=== PATIENT | female | born 1955 | race Caucasian/White ===

== ENCOUNTER 2023-11-05 15:15 | Inpatient (IN) | payer MEDICARE ==
[~2023-11-05] VITALS: Ht 167.6 cm; Wt 75.0 kg
--- OUTSIDE RECORDS SUMMARY | ~2023-11-05 | XMS | Continuity of Care Document ---
Demographics + + + | Address | [address] | | | [place] [address] | + + + | Preferred Language | Unknown | + + + | Marital Status | unknown | + + + | Anabaptist Affiliation | Unknown | + + + | Race | White | + + + | Ethnic Group | Not or | + + + Author + + + | Author | [facility] | + + + | Organization | [facility] | + + + | Address | [address] | | | [place] [address] | + + + | Phone | | + + + Care Team Providers + + + + | Care Utility Forester Name | Role | Phone | + + + + Unavailable | Unavailable | + + + + Unavailable | Unavailable | + + + + Unavailable | Unavailable | + + + + Unavailable | Unavailable | + + + + Allergies and Intolerances + + + + + + | date | description | facility | reaction | severity | + + + + + + | 2023-08-07 | CODEINE | Emergency | Unknown | Active | | 00:00 | | Department at | | | | | | [facility] | | | + + + + + + | 2023-08-07 | CODEINE | Emergency | Unknown | Active | | 00:00 | | Department at | | | | | | [facility] | | | + + + + + + | 2023-08-07 | CODEINE | Emergency | Unknown | Active | | 00:00 | | Department at | | | | | | [facility] | | | + + + + + + | 2023-08-07 | CODEINE | Emergency | Unknown | Active | | 00:00 | | Department at | | | | | | [facility] | | | + + + + + + | 2023-08-07 | CODEINE | Emergency | Unknown | Active | | 00:00 | | Department at | | | | | | [facility] | | | + + + + + + | 2023-08-07 | CODEINE | Emergency | Unknown | Active | | 00:00 | | Department at | | | | | | [facility] | | | + + + + + + | 2023-08-07 | CODEINE | Emergency | Unknown | Active | | 00:00 | | Department at | | | | | | [facility] | | | + + + + + + | 2023-08-07 | CODEINE | Emergency | Unknown | Active | | 00:00 | | Department at | | | | | | [facility] | | | + + + + + + | 2023-08-07 | CODEINE | Emergency | Unknown | Active | | 00:00 | | Department at | | | | | | [facility] | | | + + + + + + | 2023-08-07 | CODEINE | Emergency | Unknown | Active | | 00:00 | | Department at | | | | | | [facility] | | | + + + + + + Encounters No information. Functional Status No information. Immunizations No information. Medications + + + + | date | description | facility | + + + + | 2023-08-07 00:00 | 1000 ml sodium chloride 9 | Emergency Department at | | | mg/ml injection | [facility] | + + + + | 2023-08-11 00:00 | Drug or medicament | Emergency Department at | | | (substance) | [facility] | + + + + Problems + + + + | date | description | facility | + + + + | 2023-08-07 11:31 | Unspecified abdominal pain | [facility] | | | | [facility] | + + + + | 2023-08-07 11:31 | Diarrhea, unspecified | [facility] | | | | [facility] | + + + + | 2023-08-11 08:46 | Abdominal Pain | [facility] - | | | | [place] | + + + + | 2023-08-11 08:46 | Abdominal Pain | [facility] - | | | | [place] | + + + + | 2023-08-11 08:46 | Diarrhea, unspecified | [facility] - | | | | [place] | + + + + | 2023-08-17 05:48:51 | Abdominal Pain | [facility] - | | | | [place] | + + + + | 2023-08-17 05:57 | Abdominal Pain | [facility] - | | | | [place] | + + + + | 2023-08-17 05:57 | Abdominal Pain | [facility] - | | | | [place] | + + + + | 2023-08-17 05:57 | Candidiasis, unspecified | [facility] - | | | | [place] | + + + + | 2023-08-17 05:57 | Dehydration | [facility] - | | | | [place] | + + + + | 2023-08-17 05:57 | Acute cystitis without | [facility] - | | | hematuria | [place] | + + + + | 2023-08-17 05:57 | Unspecified abdominal pain | [facility] - | | | | [place] | + + + + | 2023-08-17 05:57 | Diarrhea, unspecified | [facility] - | | | | [place] | + + + + | 2023-10-23 10:35:17 | Hypokalemia | [facility] | + + + + | 2023-10-23 10:35:17 | Diarrhea, unspecified | [facility] | + + + + Procedures + + + + | date | description | facility | + + + + | 2023-08-07 00:00 | MATTHEW ROWE CORE PANEL | Emergency Department at | | | | [facility] | + + + + | 2023-08-07 00:00 | MATTHEW HOLD TUBE - GREEN | Emergency Department at | | | TOP | [facility] | + + + + | 2023-08-07 00:00 | CBC W/DIFF, REFLEX | Emergency Department at | | | | [facility] | + + + + | 2023-08-07 00:00 | MC POC GLUCOSE, BLOOD | Emergency Department at | | | | [facility] | + + + + Results/Labs +--------+--------+ +---------+--------+---------+ | test | date | facility | value | unit | notes | +--------+--------+ +---------+--------+---------+ + + | Result panel 1 | + + + + + + + + + | Specimen | (no date) | Emergency | (missing) | (missing) | (missing) | | collection | | Department | | | | | (procedure) | | at [facility] | | | | + + + + + + + + + | Result panel 2 | + + + + + + + + + | Specimen | (no date) | Emergency | (missing) | (missing) | (missing) | | collection | | Department | | | | | (procedure) | | at [facility] | | | | + + + + + + + + + | Result panel 3 | + + + + + + + + + | Specimen | (no date) | Emergency | (missing) | (missing) | (missing) | | collection | | Department | | | | | (procedure) | | at [facility] | | | | + + + + + + + + + | Result panel 4 | + + + + + +--------+ + + | nRBC/100 | 2023-08-07 | [facility] | 0.0 | % | (missing) | | WBC Bld | 11:45 | Health | | | | | Auto-Rto | | System - | | | | | | | [place] | | | | + + + +--------+ + + | nRBC # Bld | 2023-08-07 | [facility] | 0.00 | k/cu mm | (missing) | | Auto | 11:45 | Health | | | | | | | System - | | | | | | | [place] | | | | + + + +--------+ + + | Imm | 2023-08-07 | [facility] | 0.02 | k/cu mm | (missing) | | Granulocytes | 11:45 | Health | | | | | # Bld Auto | | System - | | | | | | | [place] | | | | + + + +--------+ + + | Basophils # | 2023-08-07 | [facility] | 0.02 | k/cu mm | (missing) | | Bld Auto | 11:45 | Health | | | | | | | System - | | | | | | | [place] | | | | + + + +--------+ + + | Eosinophil | 2023-08-07 | [facility] | 0.18 | k/cu mm | (missing) | | # Bld Auto | 11:45 | Health | | | | | | | System - | | | | | | | [place] | | | | + + + +--------+ + + | | 2023-08-07 | [facility] | 0.3 | % | (missing) | | Basophils/le | 11:45 | Health | | | | | uk NFr Bld | | System - | | | | | Auto | | [place] | | | | + + + +--------+ + + | Imm | 2023-08-07 | [facility] | 0.3 | % | (missing) | | Granulocytes | 11:45 | Health | | | | | /leuk NFr | | System - | | | | | Bld Auto | | [place] | | | | + + + +--------+ + + | Monocytes # | 2023-08-07 | [facility] | 0.66 | k/cu mm | (missing) | | Bld Auto | 11:45 | Health | | | | | | | System - | | | | | | | [place] | | | | + + + +--------+ + + | Lymphocytes | 2023-08-07 | [facility] | 1.58 | k/cu mm | (missing) | | # Bld Auto | 11:45 | Health | | | | | | | System - | | | | | | | [place] | | | | + + + +--------+ + + | PMV Bld | 2023-08-07 | [facility] | 11.1 | fl | (missing) | | Auto | 11:45 | Health | | | | | | | System - | | | | | | | [place] | | | | + + + +--------+ + + | RDW RBC | 2023-08-07 | [facility] | 13.5 | % | (missing) | | Auto-Rto | 11:45 | Health | | | | | | | System - | | | | | | | [place] | | | | + + + +--------+ + + | Hgb | 2023-08-07 | [facility] | 13.9 | g/dl | (missing) | | Bld-mCnc | 11:45 | Health | | | | | | | System - | | | | | | | [place] | | | | + + + +--------+ + + | Platelet # | 2023-08-07 | [facility] | 199 | k/cu mm | (missing) | | Bld Auto | 11:45 | Health | | | | | | | System - | | | | | | | [place] | | | | + + + +--------+ + + | | 2023-08-07 | [facility] | 2.5 | % | (missing) | | Eosinophil/l | 11:45 | Health | | | | | euk NFr Bld | | System - | | | | | Auto | | [place] | | | | + + + +--------+ + + | | 2023-08-07 | [facility] | 21.5 | % | (missing) | | Lymphocytes/ | 11:45 | Health | | | | | leuk NFr Bld | | System - | | | | | Auto | | [place] | | | | + + + +--------+ + + | MCH RBC Qn | 2023-08-07 | [facility] | 30.0 | pg | (missing) | | Auto | 11:45 | Health | | | | | | | System - | | | | | | | [place] | | | | + + + +--------+ + + | MCHC RBC | 2023-08-07 | [facility] | 34.0 | g/dl | (missing) | | Auto-mCnc | 11:45 | Health | | | | | | | System - | | | | | | | [place] | | | | + + + +--------+ + + | RBC # Bld | 2023-08-07 | [facility] | 4.64 | m/cu mm | (missing) | | Auto | 11:45 | Health | | | | | | | System - | | | | | | | [place] | | | | + + + +--------+ + + | Neutrophils | 2023-08-07 | [facility] | 4.88 | k/cu mm | (missing) | | # Bld Auto | 11:45 | Health | | | | | | | System - | | | | | | | [place] | | | | + + + +--------+ + + | Hct VFr Bld | 2023-08-07 | [facility] | 40.9 | % | (missing) | | Auto | 11:45 | Health | | | | | | | System - | | | | | | | [place] | | | | + + + +--------+ + + | | 2023-08-07 | [facility] | 66.4 | % | (missing) | | Neutrophils/ | 11:45 | Health | | | | | leuk NFr Bld | | System - | | | | | Auto | | [place] | | | | + + + +--------+ + + | WBC # Bld | 2023-08-07 | [facility] | 7.34 | k/cu mm | (missing) | | Auto | 11:45 | Health | | | | | | | System - | | | | | | | [place] | | | | + + + +--------+ + + | MCV RBC | 2023-08-07 | [facility] | 88.1 | fl | (missing) | | Auto | 11:45 | Health | | | | | | | System - | | | | | | | [place] | | | | + + + +--------+ + + | | 2023-08-07 | [facility] | 9.0 | % | (missing) | | Monocytes/le | 11:45 | Health | | | | | uk NFr Bld | | System - | | | | | Auto | | [place] | | | | + + + +--------+ + + + + | Result panel 5 | + + + + + +-------+---------+ + | | 2023-08-07 | Emergency | 158 | mg/dL | (missing) | | (unavailable | 18:47:24 | Department | | | | | ) | | at [facility] | | | | + + + +-------+---------+ + + + | Result panel 6 | + + + + + +--------+------+ + | | 2023-08-07 | Emergency | 30.0 | pg | (missing) | | (unavailable | 20:46:01 | Department | | | | | ) | | at [facility] | | | | + + + +--------+------+ + + + | Result panel 7 | + + + + + +--------+--------+ + | | 2023-08-07 | Emergency | 34.0 | g/dL | (missing) | | (unavailable | 20:46:01 | Department | | | | | ) | | at [facility] | | | | + + + +--------+--------+ + + + | Result panel 8 | + + + + + +--------+-----+ + | | 2023-08-07 | Emergency | 13.5 | % | (missing) | | (unavailable | 20:46:01 | Department | | | | | ) | | at [facility] | | | | + + + +--------+-----+ + + + | Result panel 9 | + + + + + +-------+ + + | | 2023-08-07 | Emergency | 199 | (missing) | (missing) | | (unavailable | 20:46:01 | Department | | | | | ) | | at [facility] | | | | + + + +-------+ + + + + | Result panel 10 | + + + + + +--------+------+ + | | 2023-08-07 | Emergency | 11.1 | fL | (missing) | | (unavailable | 20:46:01 | Department | | | | | ) | | at [facility] | | | | + + + +--------+------+ + + + | Result panel 11 | + + + + + +-------+-----+ + | | 2023-08-07 | Emergency | 0.0 | % | (missing) | | (unavailable | 20:46:01 | Department | | | | | ) | | at [facility] | | | | + + + +-------+-----+ + + + | Result panel 12 | + + + + + +--------+ + + | | 2023-08-07 | Emergency | 0.00 | (missing) | (missing) | | (unavailable | 20:46:01 | Department | | | | | ) | | at [facility] | | | | + + + +--------+ + + + + | Result panel 13 | + + + + + +--------+-----+ + | | 2023-08-07 | Emergency | 66.4 | % | (missing) | | (unavailable | 20:46:01 | Department | | | | | ) | | at [facility] | | | | + + + +--------+-----+ + + + | Result panel 14 | + + + + + +--------+-----+ + | | 2023-08-07 | Emergency | 21.5 | % | (missing) | | (unavailable | 20:46:01 | Department | | | | | ) | | at [facility] | | | | + + + +--------+-----+ + + + | Result panel 15 | + + + + + +-------+-----+ + | | 2023-08-07 | Emergency | 9.0 | % | (missing) | | (unavailable | 20:46:01 | Department | | | | | ) | | at [facility] | | | | + + + +-------+-----+ + + + | Result panel 16 | + + + + + +-------+-----+ + | | 2023-08-07 | Emergency | 2.5 | % | (missing) | | (unavailable | 20:46:01 | Department | | | | | ) | | at [facility] | | | | + + + +-------+-----+ + + + | Result panel 17 | + + + + + +-------+-----+ + | | 2023-08-07 | Emergency | 0.3 | % | (missing) | | (unavailable | 20:46:01 | Department | | | | | ) | | at [facility] | | | | + + + +-------+-----+ + + + | Result panel 18 | + + + + + +-------+-----+ + | | 2023-08-07 | Emergency | 0.3 | % | (missing) | | (unavailable | 20:46:01 | Department | | | | | ) | | at [facility] | | | | + + + +-------+-----+ + + + | Result panel 19 | + + + + + +--------+ + + | | 2023-08-07 | Emergency | 4.88 | (missing) | (missing) | | (unavailable | 20:46:01 | Department | | | | | ) | | at [facility] | | | | + + + +--------+ + + + + | Result panel 20 | + + + + + +--------+ + + | | 2023-08-07 | Emergency | 1.58 | (missing) | (missing) | | (unavailable | 20:46:01 | Department | | | | | ) | | at [facility] | | | | + + + +--------+ + + + + | Result panel 21 | + + + + + +--------+ + + | | 2023-08-07 | Emergency | 0.66 | (missing) | (missing) | | (unavailable | 20:46:01 | Department | | | | | ) | | at [facility] | | | | + + + +--------+ + + + + | Result panel 22 | + + + + + +--------+ + + | | 2023-08-07 | Emergency | 0.18 | (missing) | (missing) | | (unavailable | 20:46:01 | Department | | | | | ) | | at [facility] | | | | + + + +--------+ + + + + | Result panel 23 | + + + + + +--------+ + + | | 2023-08-07 | Emergency | 0.02 | (missing) | (missing) | | (unavailable | 20:46:01 | Department | | | | | ) | | at [facility] | | | | + + + +--------+ + + + + | Result panel 24 | + + + + + +--------+ + + | | 2023-08-07 | Emergency | 0.02 | (missing) | (missing) | | (unavailable | 20:46:01 | Department | | | | | ) | | [facility] | | | | + + + +--------+ + + + + | Result panel 25 | + + + + + + + + + | | 2023-08-07 | Emergency | Normal | (missing) | (missing) | | (unavailable | 20:46:01 | Department | | | | | ) | | at [facility] | | | | + + + + + + + + + | Result panel 26 | + + + + + +--------+ + + | | 2023-08-07 | Emergency | 7.34 | (missing) | (missing) | | (unavailable | 20:46:01 | Department | | | | | ) | | at [facility] | | | | + + + +--------+ + + + + | Result panel 27 | + + + + + +--------+ + + | | 2023-08-07 | Emergency | 4.64 | (missing) | (missing) | | (unavailable | 20:46:01 | Department | | | | | ) | | at [facility] | | | | + + + +--------+ + + + + | Result panel 28 | + + + + + +--------+--------+ + | | 2023-08-07 | Emergency | 13.9 | g/dL | (missing) | | (unavailable | 20:46:01 | Department | | | | | ) | | at [facility] | | | | + + + +--------+--------+ + + + | Result panel 29 | + + + + + +--------+-----+ + | | 2023-08-07 | Emergency | 40.9 | % | (missing) | | (unavailable | 20:46:01 | Department | | | | | ) | | at [facility] | | | | + + + +--------+-----+ + + + | Result panel 30 | + + + + + +--------+------+ + | | 2023-08-07 | Emergency | 88.1 | fL | (missing) | | (unavailable | 20:46:01 | Department | | | | | ) | | at [facility] | | | | + + + +--------+------+ + + + | Result panel 31 | + + + + + + + + + | | 2023-08-11 | [facility] | (missing) | (missing) | (missing) | | ACANTHOCYTES | 09:04 | Health | | | | | PRESENCE IN | | System - | | | | | BLOOD BY | | [place] | | | | | LIGHT | | | | | | | MICROSCOPY | | | | | | + + + + + + + | | 2023-08-11 | [facility] | (missing) | (missing) | (missing) | | ANISOCYTOSIS | 09:04 | Health | | | | | PRESENCE IN | | System - | | | | | BLOOD BY | | [place] | | | | | LIGHT | | | | | | | MICROSCOPY | | | | | | + + + + + + + | PRICILLA RODS | 2023-08-11 | [facility] | (missing) | (missing) | (missing) | | PRESENCE IN | 09:04 | Health | | | | | BLOOD BY | | System - | | | | | LIGHT | | [place] | | | | | MICROSCOPY | | | | | | + + + + + + + | BASOPHILIC | 2023-08-11 | [facility] | (missing) | (missing) | (missing) | | STIPPLING | 09:04 | Health | | | | | PRESENCE IN | | System - | | | | | BLOOD BY | | [place] | | | | | LIGHT | | | | | | | MICROSCOPY | | | | | | + + + + + + + | BEATA CELLS | 2023-08-11 | [facility] | (missing) | (missing) | (missing) | | PRESENCE IN | 09:04 | Health | | | | | BLOOD BY | | System - | | | | | LIGHT | | [place] | | | | | MICROSCOPY | | | | | | + + + + + + + | DACROCYTES | 2023-08-11 | [facility] | (missing) | (missing) | (missing) | | PRESENCE IN | 09:04 | Health | | | | | BLOOD BY | | System - | | | | | LIGHT | | [place] | | | | | MICROSCOPY | | | | | | + + + + + + + | DOHLE BODY | 2023-08-11 | [facility] | (missing) | (missing) | (missing) | | PRESENCE IN | 09:04 | Health | | | | | BLOOD BY | | System - | | | | | LIGHT | | [place] | | | | | MICROSCOPY | | | | | | + + + + + + + | | 2023-08-11 | [facility] | (missing) | (missing) | (missing) | | ELLIPTOCYTES | 09:04 | Health | | | | | IN BLOOD BY | | System - | | | | | LIGHT | | [place] | | | | | MICROSCOPY | | | | | | + + + + + + + | HELMET | 2023-08-11 | [facility] | (missing) | (missing) | (missing) | | CELLS | 09:04 | Health | | | | | | | System - | | | | | | | [place] | | | | + + + + + + + | | 2023-08-11 | [facility] | (missing) | (missing) | (missing) | | LIDYA-BAILEE | 09:04 | Health | | | | | BODIES | | System - | | | | | PRESENCE IN | | [place] | | | | | BLOOD BY | | | | | | | LIGHT | | | | | | | MICROSCOPY | | | | | | + + + + + + + | | 2023-08-11 | [facility] | (missing) | (missing) | (missing) | | HYPERSEGMENT | 09:04 | Health | | | | | ED | | System - | | | | | NEUTROPHILS | | [place] | | | | | IN BLOOD BY | | | | | | | LIGHT | | | | | | | MICROSCOPY | | | | | | + + + + + + + | HYPOCHROMIA | 2023-08-11 | [facility] | (missing) | (missing) | (missing) | | (PRESENCE) | 09:04 | Health | | | | | IN BLOOD BY | | System - | | | | | LIGHT | | [place] | | | | | MICROSCOPY | | | | | | + + + + + + + | | 2023-08-11 | [facility] | (missing) | (missing) | (missing) | | HYPOGRANULAR | 09:04 | Health | | | | | PLATELETS | | System - | | | | | IN BLOOD BY | | [place] | | | | | LIGHT | | | | | | | MICROSCOPY | | | | | | + + + + + + + | LEUKOCYTE | 2023-08-11 | [facility] | (missing) | (missing) | (missing) | | MORPHOLOGY | 09:04 | Health | | | | | FINDING IN | | System - | | | | | BLOOD | | [place] | | | | + + + + + + + | MACROCYTES | 2023-08-11 | [facility] | (missing) | (missing) | (missing) | | (PRESENCE) | 09:04 | Health | | | | | IN BLOOD BY | | System - | | | | | LIGHT | | [place] | | | | | MICROSCOPY | | | | | | + + + + + + + | MICROCYTES | 2023-08-11 | [facility] | (missing) | (missing) | (missing) | | (PRESENCE) | 09:04 | Health | | | | | IN BLOOD BY | | System - | | | | | LIGHT | | [place] | | | | | MICROSCOPY | | | | | | + + + + + + + | | 2023-08-11 | [facility] | (missing) | (missing) | (missing) | | PAPPENHEIMER | 09:04 | Health | | | | | BODIES IN | | System - | | | | | BLOOD BY | | [place] | | | | | LIGHT | | | | | | | MICROSCOPY | | | | | | + + + + + + + | PELGER HUET | 2023-08-11 | [facility] | (missing) | (missing) | (missing) | | CELLS | 09:04 | Health | | | | | PRESENCE IN | | System - | | | | | BLOOD BY | | [place] | | | | | LIGHT | | | | | | | MICROSCOPY | | | | | | + + + + + + + | | 2023-08-11 | [facility] | (missing) | (missing) | (missing) | | PLASMACYTOID | 09:04 | Health | | | | | LYMPHOCYTES | | System - | | | | | | | [place] | | | | + + + + + + + | PLATELET | 2023-08-11 | [facility] | (missing) | (missing) | (missing) | | CLUMP | 09:04 | Health | | | | | (PRESENCE) | | System - | | | | | IN BLOOD BY | | [place] | | | | | LIGHT | | | | | | | MICROSCOPY | | | | | | + + + + + + + | PLATELET | 2023-08-11 | [facility] | (missing) | (missing) | (missing) | | ESTIMATE | 09:04 | Health | | | | | | | System - | | | | | | | [place] | | | | + + + + + + + | PLATELET | 2023-08-11 | [facility] | (missing) | (missing) | (missing) | | MORPHOLOGY | 09:04 | Health | | | | | IN BLOOD | | System - | | | | | | | [place] | | | | + + + + + + + | PLATELETS | 2023-08-11 | [facility] | (missing) | (missing) | (missing) | | GIANT | 09:04 | Health | | | | | PRESENCE IN | | System - | | | | | BLOOD BY | | [place] | | | | | LIGHT | | | | | | | MICROSCOPY | | | | | | + + + + + + + | | 2023-08-11 | [facility] | (missing) | (missing) | (missing) | | POIKILOCYTOS | 09:04 | Health | | | | | IS | | System - | | | | | (PRESENCE) | | [place] | | | | | IN BLOOD BY | | | | | | | LIGHT | | | | | | | MICROSCOPY | | | | | | + + + + + + + | | 2023-08-11 | [facility] | (missing) | (missing) | (missing) | | POLYCHROMASI | 09:04 | Health | | | | | A IN BLOOD | | System - | | | | | BY LIGHT | | [place] | | | | | MICROSCOPY | | | | | | + + + + + + + | RBC | 2023-08-11 | [facility] | (missing) | (missing) | (missing) | | MORPHOLOGY | 09:04 | Health | | | | | IN BLOOD | | System - | | | | | | | [place] | | | | + + + + + + + | ROULEAUX | 2023-08-11 | [facility] | (missing) | (missing) | (missing) | | PRESENCE IN | 09:04 | Health | | | | | BLOOD BY | | System - | | | | | LIGHT | | [place] | | | | | MICROSCOPY | | | | | | + + + + + + + | | 2023-08-11 | [facility] | (missing) | (missing) | (missing) | | SCHISTOCYTES | 09:04 | Health | | | | | (PRESENCE) | | System - | | | | | IN BLOOD BY | | [place] | | | | | LIGHT | | | | | | | MICROSCOPY | | | | | | + + + + + + + | SICKLE | 2023-08-11 | [facility] | (missing) | (missing) | (missing) | | CELLS | 09:04 | Health | | | | | (PRESENCE) | | System - | | | | | IN BLOOD BY | | [place] | | | | | LIGHT | | | | | | | MICROSCOPY | | | | | | + + + + + + + | SMUDGE | 2023-08-11 | [facility] | (missing) | (missing) | (missing) | | CELLS/100 | 09:04 | Health | | | | | LEUKOCYTES | | System - | | | | | IN BLOOD BY | | [place] | | | | | MANUAL COUNT | | | | | | | | | | | | | + + + + + + + | SPHEROCYTES | 2023-08-11 | [facility] | (missing) | (missing) | (missing) | | PRESENCE IN | 09:04 | Health | | | | | BLOOD BY | | System - | | | | | LIGHT | | [place] | | | | | MICROSCOPY | | | | | | + + + + + + + | | 2023-08-11 | [facility] | (missing) | (missing) | (missing) | | STOMATOCYTES | 09:04 | Health | | | | | IN BLOOD BY | | System - | | | | | LIGHT | | [place] | | | | | MICROSCOPY | | | | | | + + + + + + + | TARGET | 2023-08-11 | [facility] | (missing) | (missing) | (missing) | | CELLS IN | 09:04 | Health | | | | | BLOOD BY | | System - | | | | | LIGHT | | [place] | | | | | MICROSCOPY | | | | | | + + + + + + + | TOXIC | 2023-08-11 | [facility] | (missing) | (missing) | (missing) | | GRANULES | 09:04 | Health | | | | | PRESENCE IN | | System - | | | | | BLOOD BY | | [place] | | | | | LIGHT | | | | | | | MICROSCOPY | | | | | | + + + + + + + | VACUOLATED | 2023-08-11 | [facility] | (missing) | (missing) | (missing) | | NEUTROPHILS | 09:04 | Health | | | | | PRESENCE IN | | System - | | | | | BLOOD BY | | [place] | | | | | LIGHT | | | | | | | MICROSCOPY | | | | | | + + + + + + + | EGFR | 2023-08-11 | [facility] | > | | (missing) | | (GLOMERULAR | 09:04 | Health | | ml/min/1.73m | | | FILTRATION | | System - | | ? | | | RATE) | | [place] | | | | | ML/MIN/1.73 | | | | | | | SQ M. | | | | | | + + + + + + + | NRBC/100 | 2023-08-11 | [facility] | 0.0 | % | (missing) | | WBCS BY | 09:04 | Health | | | | | AUTOMATED | | System - | | | | | COUNT | | [place] | | | | + + + + + + + | BASOPHILS | 2023-08-11 | [facility] | 0.0 | k/mcl | (missing) | | (10*3/UL) IN | 09:04 | Health | | | | | BLOOD BY | | System - | | | | | AUTOMATED | | [place] | | | | | COUNT | | | | | | + + + + + + + | | 2023-08-11 | [facility] | 0.0 | k/mcl | (missing) | | NRBC(10*3/UL | 09:04 | Health | | | | | ) IN BLOOD | | System - | | | | | BY AUTOMATED | | [place] | | | | | COUNT | | | | | | + + + + + + + | IMMATURE | 2023-08-11 | [facility] | 0.03 | k/mcl | (missing) | | GRANULOCYTE | 09:04 | Health | | | | | (ABS) | | System - | | | | | | | [place] | | | | + + + + + + + | EOSINOPHILS | 2023-08-11 | [facility] | 0.2 | k/mcl | (missing) | | (10*3/UL) | 09:04 | Health | | | | | IN BLOOD BY | | System - | | | | | AUTOMATED | | [place] | | | | | COUNT | | | | | | + + + + + + + | IMMATURE | 2023-08-11 | [facility] | 0.4 | % | (missing) | | GRANULOCYTE | 09:04 | Health | | | | | % (AUTO) | | System - | | | | | | | [place] | | | | + + + + + + + | | 2023-08-11 | [facility] | 0.5 | % | (missing) | | BASOPHILS/10 | 09:04 | Health | | | | | 0 LEUKOCYTES | | System - | | | | | IN BLOOD BY | | [place] | | | | | AUTOMATED | | | | | | | COUNT | | | | | | + + + + + + + | MONOCYTES | 2023-08-11 | [facility] | 0.7 | k/mcl | (missing) | | (10*3/UL) IN | 09:04 | Health | | | | | BLOOD BY | | System - | | | | | AUTOMATED | | [place] | | | | | COUNT | | | | | | + + + + + + + | BILIRUBIN | 2023-08-11 | [facility] | 0.7 | mg/dl | (missing) | | TOTAL | 09:04 | Health | | | | | (MG/DL) IN | | System - | | | | | SER/PLAS | | [place] | | | | + + + + + + + | CREATININE | 2023-08-11 | [facility] | 0.7 | mg/dl | (missing) | | (MG/DL) IN | 09:04 | Health | | | | | SER/PLAS | | System - | | | | | | | [place] | | | | + + + + + + + | LYMPHOCYTES | 2023-08-11 | [facility] | 1.4 | k/mcl | (missing) | | (10*3/UL) | 09:04 | Health | | | | | IN BLOOD BY | | System - | | | | | AUTOMATED | | [place] | | | | | COUNT | | | | | | + + + + + + + | CHLORIDE | 2023-08-11 | [facility] | 100 | mmol/l | (missing) | | (MMOL/L) IN | 09:04 | Health | | | | | SER/PLAS | | System - | | | | | | | [place] | | | | + + + + + + + | LIPASE | 2023-08-11 | [facility] | 11 | u/l | (missing) | | (U/L) IN | 09:04 | Health | | | | | SER/PLAS | | System - | | | | | | | [place] | | | | + + + + + + + | PLATELET | 2023-08-11 | [facility] | 11.3 | fl | (missing) | | MEAN VOLUME | 09:04 | Health | | | | | (FL) IN | | System - | | | | | BLOOD BY | | [place] | | | | | AUTOMATED | | | | | | | COUNT | | | | | | + + + + + + + | ERYTHROCYTE | 2023-08-11 | [facility] | 13.7 | % | (missing) | | | 09:04 | Health | | | | | DISTRIBUTION | | System - | | | | | WIDTH | | [place] | | | | | (RATIO) BY | | | | | | | AUTOMATED | | | | | | | COUNT | | | | | | + + + + + + + | SODIUM | 2023-08-11 | [facility] | 138 | mmol/l | (missing) | | (MMOL/L) IN | 09:04 | Health | | | | | SER/PLAS | | System - | | | | | | | [place] | | | | + + + + + + + | HEMOGLOBIN | 2023-08-11 | [facility] | 14.3 | g/dl | (missing) | | (G/DL) IN | 09:04 | Health | | | | | BLOOD | | System - | | | | | | | [place] | | | | + + + + + + + | ALKALINE | 2023-08-11 | [facility] | 141 | u/l | (missing) | | PHOSPHATASE | 09:04 | Health | | | | | (U/L) IN | | System - | | | | | SER/PLAS | | [place] | | | | + + + + + + + | ANION GAP | 2023-08-11 | [facility] | 16.0 | mmol/l | (missing) | | IN SER/PLAS | 09:04 | Health | | | | | | | System - | | | | | | | [place] | | | | + + + + + + + | | 2023-08-11 | [facility] | 17.8 | % | (missing) | | LYMPHOCYTES/ | 09:04 | Health | | | | | 100 | | System - | | | | | LEUKOCYTES | | [place] | | | | | IN BLOOD BY | | | | | | | AUTOMATED | | | | | | | COUNT | | | | | | + + + + + + + | BLOOD UREA | 2023-08-11 | [facility] | 19 | mg/dl | (missing) | | NITROGEN | 09:04 | Health | | | | | (BUN) | | System - | | | | | (MG/DL) IN | | [place] | | | | | SER/PLAS | | | | | | + + + + + + + | ALANINE | 2023-08-11 | [facility] | 19 | u/l | (missing) | | AMINOTRANSFE | 09:04 | Health | | | | | RASE (SGPT) | | System - | | | | | (U/L) IN | | [place] | | | | | SER/PLAS | | | | | | + + + + + + + | | 2023-08-11 | [facility] | 2.0 | % | (missing) | | EOSINOPHILS/ | 09:04 | Health | | | | | 100 | | System - | | | | | LEUKOCYTES | | [place] | | | | | IN BLOOD BY | | | | | | | AUTOMATED | | | | | | | COUNT | | | | | | + + + + + + + | GLUCOSE, | 2023-08-11 | [facility] | 210 | mg/dl | (missing) | | RANDOM | 09:04 | Health | | | | | (MG/DL) IN | | System - | | | | | SER/PLAS | | [place] | | | | + + + + + + + | PLATELETS | 2023-08-11 | [facility] | 218 | k/mcl | (missing) | | (10*3/UL) IN | 09:04 | Health | | | | | BLOOD | | System - | | | | | AUTOMATED | | [place] | | | | | COUNT | | | | | | + + + + + + + | CARBON | 2023-08-11 | [facility] | 22 | mmol/l | (missing) | | DIOXIDE | 09:04 | Health | | | | | (CO2), TOTAL | | System - | | | | | (MMOL/L) IN | | [place] | | | | | SER/PLAS | | | | | | + + + + + + + | ASPARTATE | 2023-08-11 | [facility] | 30 | u/l | (missing) | | AMINOTRANSFE | 09:04 | Health | | | | | RASE (SGOT) | | System - | | | | | (U/L) IN | | [place] | | | | | SER/PLAS | | | | | | + + + + + + + | ERYTHROCYTE | 2023-08-11 | [facility] | 30.3 | pg | (missing) | | MEAN | 09:04 | Health | | | | | CORPUSCULAR | | System - | | | | | HEMOGLOBIN | | [place] | | | | | (PG) BY | | | | | | | AUTOMATED | | | | | | | COUNT | | | | | | + + + + + + + | ERYTHROCYTE | 2023-08-11 | [facility] | 32.6 | g/dl | (missing) | | MEAN | 09:04 | Health | | | | | CORPUSCULAR | | System - | | | | | HEMOGLOBIN | | [place] | | | | | CONCENTRATIO | | | | | | | N (G/DL) BY | | | | | | | AUTOMATED | | | | | | + + + + + + + | POTASSIUM | 2023-08-11 | [facility] | 4.0 | mmol/l | (missing) | | (MMOL/L) IN | 09:04 | Health | | | | | SER/PLAS | | System - | | | | | | | [place] | | | | + + + + + + + | ALBUMIN | 2023-08-11 | [facility] | 4.5 | g/dl | (missing) | | (G/DL) IN | 09:04 | Health | | | | | SER/PLAS | | System - | | | | | | | [place] | | | | + + + + + + + | | 2023-08-11 | [facility] | 4.72 | m/mcl | (missing) | | ERYTHROCYTES | 09:04 | Health | | | | | (10*6/UL) | | System - | | | | | IN BLOOD BY | | [place] | | | | | AUTOMATED | | | | | | | COUNT | | | | | | + + + + + + + | HEMATOCRIT | 2023-08-11 | [facility] | 43.9 | % | (missing) | | (%) IN BLOOD | 09:04 | Health | | | | | BY | | System - | | | | | AUTOMATED | | [place] | | | | | COUNT | | | | | | + + + + + + + | NEUTROPHILS | 2023-08-11 | [facility] | 5.5 | k/mcl | (missing) | | (10*3/UL) | 09:04 | Health | | | | | IN BLOOD BY | | System - | | | | | AUTOMATED | | [place] | | | | | COUNT | | | | | | + + + + + + + | PROTEIN | 2023-08-11 | [facility] | 7.6 | g/dl | (missing) | | (G/DL) IN | 09:04 | Health | | | | | SER/PLAS | | System - | | | | | | | [place] | | | | + + + + + + + | | 2023-08-11 | [facility] | 7.9 | k/mcl | (missing) | | LEUKOCYTES(1 | 09:04 | Health | | | | | 0*3/UL) IN | | System - | | | | | BLOOD BY | | [place] | | | | | AUTOMATED | | | | | | | COUNT | | | | | | + + + + + + + | | 2023-08-11 | [facility] | 70.1 | % | (missing) | | NEUTROPHILS/ | 09:04 | Health | | | | | 100 | | System - | | | | | LEUKOCYTES | | [place] | | | | | IN BLOOD BY | | | | | | | AUTOMATED | | | | | | | COUNT | | | | | | + + + + + + + | | 2023-08-11 | [facility] | 9.2 | % | (missing) | | MONOCYTES/10 | 09:04 | Health | | | | | 0 LEUKOCYTES | | System - | | | | | IN BLOOD BY | | [place] | | | | | AUTOMATED | | | | | | | COUNT | | | | | | + + + + + + + | CALCIUM | 2023-08-11 | [facility] | 9.8 | mg/dl | (missing) | | (MG/DL) IN | 09:04 | Health | | | | | SER/PLAS | | System - | | | | | | | [place] | | | | + + + + + + + | ERYTHROCYTE | 2023-08-11 | [facility] | 93.0 | fl | (missing) | | MEAN | 09:04 | Health | | | | | CORPUSCULAR | | System - | | | | | VOLUME (FL) | | [place] | | | | | BY AUTOMATED | | | | | | | COUNT | | | | | | + + + + + + + | ASTROVIRUS | 2023-08-11 | [facility] | Not | (missing) | (missing) | | | 09:04 | Health | Detected | | | | | | System - | | | | | | | [place] | | | | + + + + + + + | | 2023-08-11 | [facility] | Not | (missing) | (missing) | | CAMPYLOBACTE | 09:04 | Health | Detected | | | | R | | System - | | | | | | | [place] | | | | + + + + + + + | | 2023-08-11 | [facility] | Not | (missing) | (missing) | | CRYPTOSPORID | 09:04 | Health | Detected | | | | IUM | | System - | | | | | | | [place] | | | | + + + + + + + | CYCLOSPORA | 2023-08-11 | [facility] | Not | (missing) | (missing) | | CAYETANENSIS | 09:04 | Health | Detected | | | | | | System - | | | | | | | [place] | | | | + + + + + + + | ENTAMOEBA | 2023-08-11 | [facility] | Not | (missing) | (missing) | | HISTOLYTICA | 09:04 | Health | Detected | | | | | | System - | | | | | | | [place] | | | | + + + + + + + | | 2023-08-11 | [facility] | Not | (missing) | (missing) | | ENTEROAGGREG | 09:04 | Health | Detected | | | | ATIVE E. | | System - | | | | | COLI (EAEC) | | [place] | | | | + + + + + + + | | 2023-08-11 | [facility] | Not | (missing) | (missing) | | ENTEROPATHOG | 09:04 | Health | Detected | | | | ENIC E. COLI | | System - | | | | | (EPEC) | | [place] | | | | + + + + + + + | | 2023-08-11 | [facility] | Not | (missing) | (missing) | | ENTEROTOXIGE | 09:04 | Health | Detected | | | | CINDY E. COLI | | System - | | | | | (ETEC) | | [place] | | | | + + + + + + + | GIARDIA | 2023-08-11 | [facility] | Not | (missing) | (missing) | | LAMBLIA | 09:04 | Health | Detected | | | | | | System - | | | | | | | [place] | | | | + + + + + + + | NOROVIRUS | 2023-08-11 | [facility] | Not | (missing) | (missing) | | GI/GII | 09:04 | Health | Detected | | | | | | System - | | | | | | | [place] | | | | + + + + + + + | PLESIOMONAS | 2023-08-11 | [facility] | Not | (missing) | (missing) | | | 09:04 | Health | Detected | | | | SHIGELLOIDES | | System - | | | | | | | [place] | | | | + + + + + + + | ROTAVIRUS A | 2023-08-11 | [facility] | Not | (missing) | (missing) | | | 09:04 | Health | Detected | | | | | | System - | | | | | | | [place] | | | | + + + + + + + | SALMONELLA | 2023-08-11 | [facility] | Not | (missing) | (missing) | | | 09:04 | Health | Detected | | | | | | System - | | | | | | | [place] | | | | + + + + + + + | SAPOVIRUS | 2023-08-11 | [facility] | Not | (missing) | (missing) | | | 09:04 | Health | Detected | | | | | | System - | | | | | | | [place] | | | | + + + + + + + | SHIGA-LIKE | 2023-08-11 | [facility] | Not | (missing) | (missing) | | TOXIN-PRODUC | 09:04 | Health | Detected | | | | ING E. COLI | | System - | | | | | (STEC) | | [place] | | | | | STX1/STX2 | | | | | | + + + + + + + | | 2023-08-11 | [facility] | Not | (missing) | (missing) | | SHIGELLA/ENT | 09:04 | Health | Detected | | | | EROINVASIVE | | System - | | | | | E. COLI | | [place] | | | | | (EIEC) | | | | | | + + + + + + + | VIBRIO | 2023-08-11 | [facility] | Not | (missing) | (missing) | | CHOLERAE | 09:04 | Health | Detected | | | | | | System - | | | | | | | [place] | | | | + + + + + + + | VIBRIO | 2023-08-11 | [facility] | Not | (missing) | (missing) | | | 09:04 | Health | Detected | | | | | | System - | | | | | | | [place] | | | | + + + + + + + | YERSINIA | 2023-08-11 | [facility] | Not | (missing) | (missing) | | ENTEROCOLITI | 09:04 | Health | Detected | | | | CA | | System - | | | | | | | [place] | | | | + + + + + + + | C DIFFICILE | 2023-08-11 | [facility] | Not | (missing) | Due to the | | TOXINS A + | 09:04 | Health | Detected | | high | | B (PCR) | | System - | | | asymptomatic | | | | [place] | | | carriage | | | | | | | rates, | | | | | | | especially | | | | | | | in young | | | | | | | children, | | | | | | | the clinical | | | | | | | relevance | | | | | | | of the | | | | | | | detection of | | | | | | | toxigenic | | | | | | | C. difficile | | | | | | | from stool | | | | | | | should be | | | | | | | considered | | | | | | | in the | | | | | | | context of | | | | | | | other | | | | | | | clinical | | | | | | | findings, | | | | | | | patient age, | | | | | | | and risk | | | | | | | factors | | | | | | | including | | | | | | | hospitalizat | | | | | | | ion and | | | | | | | antibiotic | | | | | | | exposure. | + + + + + + + | ADENOVIRUS | 2023-08-11 | [facility] | Not | (missing) | Virus, | | F 40/41 | 09:04 | Health | Detected | | bacteria and | | | | System - | | | parasite | | | | [place] | | | nucleic acid | | | | | | | may persist | | | | | | | in vivo | | | | | | | independentl | | | | | | | y of | | | | | | | organism | | | | | | | viability. | | | | | | | Additionally | | | | | | | , some | | | | | | | organisms | | | | | | | may be | | | | | | | carried | | | | | | | asymptomatic | | | | | | | ally. | | | | | | | Detection of | | | | | | | organism | | | | | | | targets does | | | | | | | not imply | | | | | | | that the | | | | | | | correspondin | | | | | | | g organisms | | | | | | | are | | | | | | | infectious | | | | | | | or are the | | | | | | | causative | | | | | | | agents for | | | | | | | clinical | | | | | | | symptoms. | | | | | | | Results from | | | | | | | this test | | | | | | | must be | | | | | | | correlated | | | | | | | with the | | | | | | | clinical | | | | | | | history, | | | | | | | epidemiologi | | | | | | | alejandro data, | | | | | | | and other | | | | | | | data | | | | | | | available to | | | | | | | the | | | | | | | clinician | | | | | | | evaluating | | | | | | | the patient. | + + + + + + + + + | Result panel 32 | + + + + + + + + + | SPECIFIC | 2023-08-17 | [facility] | > | (missing) | (missing) | | GRAVITY OF | 06:53 | Health | | | | | URINE BY | | System - | | | | | AUTOMATED | | [place] | | | | | TEST STRIP | | | | | | + + + + + + + | EGFR | 2023-08-17 | [facility] | > | | (missing) | | (GLOMERULAR | 06:53 | Health | | ml/min/1.73m | | | FILTRATION | | System - | | ? | | | RATE) | | [place] | | | | | ML/MIN/1.73 | | | | | | | SQ M. | | | | | | + + + + + + + | NRBC/100 | 2023-08-17 | [facility] | 0.0 | % | (missing) | | WBCS BY | 06:53 | Health | | | | | AUTOMATED | | System - | | | | | COUNT | | [place] | | | | + + + + + + + | BASOPHILS | 2023-08-17 | [facility] | 0.0 | k/mcl | (missing) | | (10*3/UL) IN | 06:53 | Health | | | | | BLOOD BY | | System - | | | | | AUTOMATED | | [place] | | | | | COUNT | | | | | | + + + + + + + | | 2023-08-17 | [facility] | 0.0 | k/mcl | (missing) | | NRBC(10*3/UL | 06:53 | Health | | | | | ) IN BLOOD | | System - | | | | | BY AUTOMATED | | [place] | | | | | COUNT | | | | | | + + + + + + + | IMMATURE | 2023-08-17 | [facility] | 0.03 | k/mcl | (missing) | | GRANULOCYTE | 06:53 | Health | | | | | (ABS) | | System - | | | | | | | [place] | | | | + + + + + + + | EOSINOPHILS | 2023-08-17 | [facility] | 0.1 | k/mcl | (missing) | | (10*3/UL) | 06:53 | Health | | | | | IN BLOOD BY | | System - | | | | | AUTOMATED | | [place] | | | | | COUNT | | | | | | + + + + + + + | | 2023-08-17 | [facility] | 0.2 | % | (missing) | | BASOPHILS/10 | 06:53 | Health | | | | | 0 LEUKOCYTES | | System - | | | | | IN BLOOD BY | | [place] | | | | | AUTOMATED | | | | | | | COUNT | | | | | | + + + + + + + | IMMATURE | 2023-08-17 | [facility] | 0.3 | % | (missing) | | GRANULOCYTE | 06:53 | Health | | | | | % (AUTO) | | System - | | | | | | | [place] | | | | + + + + + + + | MONOCYTES | 2023-08-17 | [facility] | 0.6 | k/mcl | (missing) | | (10*3/UL) IN | 06:53 | Health | | | | | BLOOD BY | | System - | | | | | AUTOMATED | | [place] | | | | | COUNT | | | | | | + + + + + + + | | 2023-08-17 | [facility] | 0.7 | % | (missing) | | EOSINOPHILS/ | 06:53 | Health | | | | | 100 | | System - | | | | | LEUKOCYTES | | [place] | | | | | IN BLOOD BY | | | | | | | AUTOMATED | | | | | | | COUNT | | | | | | + + + + + + + | CREATININE | 2023-08-17 | [facility] | 0.8 | mg/dl | (missing) | | (MG/DL) IN | 06:53 | Health | | | | | SER/PLAS | | System - | | | | | | | [place] | | | | + + + + + + + | BILIRUBIN | 2023-08-17 | [facility] | 0.9 | mg/dl | (missing) | | TOTAL | 06:53 | Health | | | | | (MG/DL) IN | | System - | | | | | SER/PLAS | | [place] | | | | + + + + + + + | YEAST, | 2023-08-17 | [facility] | 1 | /hpf | (missing) | | BUDDING | 06:53 | Health | | | | | (#/HPF) IN | | System - | | | | | URINE | | [place] | | | | + + + + + + + | LYMPHOCYTES | 2023-08-17 | [facility] | 1.3 | k/mcl | (missing) | | (10*3/UL) | 06:53 | Health | | | | | IN BLOOD BY | | System - | | | | | AUTOMATED | | [place] | | | | | COUNT | | | | | | + + + + + + + | CHLORIDE | 2023-08-17 | [facility] | 100 | mmol/l | (missing) | | (MMOL/L) IN | 06:53 | Health | | | | | SER/PLAS | | System - | | | | | | | [place] | | | | + + + + + + + | PLATELET | 2023-08-17 | [facility] | 11.5 | fl | (missing) | | MEAN VOLUME | 06:53 | Health | | | | | (FL) IN | | System - | | | | | BLOOD BY | | [place] | | | | | AUTOMATED | | | | | | | COUNT | | | | | | + + + + + + + | WBC | 2023-08-17 | [facility] | 13 | /hpf | (missing) | | (LEUKOCYTE) | 06:53 | Health | | | | | (#/HPF) IN | | System - | | | | | URINE | | [place] | | | | | SEDIMENT | | | | | | + + + + + + + | ERYTHROCYTE | 2023-08-17 | [facility] | 13.7 | % | (missing) | | | 06:53 | Health | | | | | DISTRIBUTION | | System - | | | | | WIDTH | | [place] | | | | | (RATIO) BY | | | | | | | AUTOMATED | | | | | | | COUNT | | | | | | + + + + + + + | ALKALINE | 2023-08-17 | [facility] | 133 | u/l | (missing) | | PHOSPHATASE | 06:53 | Health | | | | | (U/L) IN | | System - | | | | | SER/PLAS | | [place] | | | | + + + + + + + | SODIUM | 2023-08-17 | [facility] | 137 | mmol/l | (missing) | | (MMOL/L) IN | 06:53 | Health | | | | | SER/PLAS | | System - | | | | | | | [place] | | | | + + + + + + + | HEMOGLOBIN | 2023-08-17 | [facility] | 14.8 | g/dl | (missing) | | (G/DL) IN | 06:53 | Health | | | | | BLOOD | | System - | | | | | | | [place] | | | | + + + + + + + | ANION GAP | 2023-08-17 | [facility] | 15.0 | mmol/l | (missing) | | IN SER/PLAS | 06:53 | Health | | | | | | | System - | | | | | | | [place] | | | | + + + + + + + | | 2023-08-17 | [facility] | 15.1 | % | (missing) | | LYMPHOCYTES/ | 06:53 | Health | | | | | 100 | | System - | | | | | LEUKOCYTES | | [place] | | | | | IN BLOOD BY | | | | | | | AUTOMATED | | | | | | | COUNT | | | | | | + + + + + + + | GLUCOSE, | 2023-08-17 | [facility] | 198 | mg/dl | (missing) | | RANDOM | 06:53 | Health | | | | | (MG/DL) IN | | System - | | | | | SER/PLAS | | [place] | | | | + + + + + + + | LEUKOCYTE | 2023-08-17 | [facility] | 2 | (missing) | (missing) | | ESTERASE | 06:53 | Health | | | | | PRESENCE IN | | System - | | | | | URINE BY | | [place] | | | | | TEST STRIP | | | | | | + + + + + + + | RBC (#/HPF) | 2023-08-17 | [facility] | 20 | /hpf | (missing) | | IN URINE | 06:53 | Health | | | | | SEDIMENT | | System - | | | | | | | [place] | | | | + + + + + + + | CARBON | 2023-08-17 | [facility] | 22 | mmol/l | (missing) | | DIOXIDE | 06:53 | Health | | | | | (CO2), TOTAL | | System - | | | | | (MMOL/L) IN | | [place] | | | | | SER/PLAS | | | | | | + + + + + + + | PLATELETS | 2023-08-17 | [facility] | 233 | k/mcl | (missing) | | (10*3/UL) IN | 06:53 | Health | | | | | BLOOD | | System - | | | | | AUTOMATED | | [place] | | | | | COUNT | | | | | | + + + + + + + | ALANINE | 2023-08-17 | [facility] | 25 | u/l | (missing) | | AMINOTRANSFE | 06:53 | Health | | | | | RASE (SGPT) | | System - | | | | | (U/L) IN | | [place] | | | | | SER/PLAS | | | | | | + + + + + + + | POTASSIUM | 2023-08-17 | [facility] | 3.8 | mmol/l | (missing) | | (MMOL/L) IN | 06:53 | Health | | | | | SER/PLAS | | System - | | | | | | | [place] | | | | + + + + + + + | ERYTHROCYTE | 2023-08-17 | [facility] | 30.0 | pg | (missing) | | MEAN | 06:53 | Health | | | | | CORPUSCULAR | | System - | | | | | HEMOGLOBIN | | [place] | | | | | (PG) BY | | | | | | | AUTOMATED | | | | | | | COUNT | | | | | | + + + + + + + | BLOOD UREA | 2023-08-17 | [facility] | 32 | mg/dl | (missing) | | NITROGEN | 06:53 | Health | | | | | (BUN) | | System - | | | | | (MG/DL) IN | | [place] | | | | | SER/PLAS | | | | | | + + + + + + + | ERYTHROCYTE | 2023-08-17 | [facility] | 33.0 | g/dl | (missing) | | MEAN | 06:53 | Health | | | | | CORPUSCULAR | | System - | | | | | HEMOGLOBIN | | [place] | | | | | CONCENTRATIO | | | | | | | N (G/DL) BY | | | | | | | AUTOMATED | | | | | | + + + + + + + | ALBUMIN | 2023-08-17 | [facility] | 4.2 | g/dl | (missing) | | (G/DL) IN | 06:53 | Health | | | | | SER/PLAS | | System - | | | | | | | [place] | | | | + + + + + + + | | 2023-08-17 | [facility] | 4.93 | m/mcl | (missing) | | ERYTHROCYTES | 06:53 | Health | | | | | (10*6/UL) | | System - | | | | | IN BLOOD BY | | [place] | | | | | AUTOMATED | | | | | | | COUNT | | | | | | + + + + + + + | HEMATOCRIT | 2023-08-17 | [facility] | 44.9 | % | (missing) | | (%) IN BLOOD | 06:53 | Health | | | | | BY | | System - | | | | | AUTOMATED | | [place] | | | | | COUNT | | | | | | + + + + + + + | PH OF URINE | 2023-08-17 | [facility] | 5.0 | (missing) | (missing) | | | 06:53 | Health | | | | | | | System - | | | | | | | [place] | | | | + + + + + + + | ASPARTATE | 2023-08-17 | [facility] | 50 | u/l | (missing) | | AMINOTRANSFE | 06:53 | Health | | | | | RASE (SGOT) | | System - | | | | | (U/L) IN | | [place] | | | | | SER/PLAS | | | | | | + + + + + + + | SQUAMOUS | 2023-08-17 | [facility] | 6 | /hpf | (missing) | | EPITHELIAL | 06:53 | Health | | | | | CELLS | | System - | | | | | (#/HPF) IN | | [place] | | | | | URINE | | | | | | | SEDIMENT | | | | | | + + + + + + + | | 2023-08-17 | [facility] | 6.4 | % | (missing) | | MONOCYTES/10 | 06:53 | Health | | | | | 0 LEUKOCYTES | | System - | | | | | IN BLOOD BY | | [place] | | | | | AUTOMATED | | | | | | | COUNT | | | | | | + + + + + + + | NEUTROPHILS | 2023-08-17 | [facility] | 6.7 | k/mcl | (missing) | | (10*3/UL) | 06:53 | Health | | | | | IN BLOOD BY | | System - | | | | | AUTOMATED | | [place] | | | | | COUNT | | | | | | + + + + + + + | PROTEIN | 2023-08-17 | [facility] | 7.5 | g/dl | (missing) | | (G/DL) IN | 06:53 | Health | | | | | SER/PLAS | | System - | | | | | | | [place] | | | | + + + + + + + | | 2023-08-17 | [facility] | 77.3 | % | (missing) | | NEUTROPHILS/ | 06:53 | Health | | | | | 100 | | System - | | | | | LEUKOCYTES | | [place] | | | | | IN BLOOD BY | | | | | | | AUTOMATED | | | | | | | COUNT | | | | | | + + + + + + + | | 2023-08-17 | [facility] | 8.6 | k/mcl | (missing) | | LEUKOCYTES(1 | 06:53 | Health | | | | | 0*3/UL) IN | | System - | | | | | BLOOD BY | | [place] | | | | | AUTOMATED | | | | | | | COUNT | | | | | | + + + + + + + | CALCIUM | 2023-08-17 | [facility] | 9.7 | mg/dl | (missing) | | (MG/DL) IN | 06:53 | Health | | | | | SER/PLAS | | System - | | | | | | | [place] | | | | + + + + + + + | ERYTHROCYTE | 2023-08-17 | [facility] | 91.1 | fl | (missing) | | MEAN | 06:53 | Health | | | | | CORPUSCULAR | | System - | | | | | VOLUME (FL) | | [place] | | | | | BY AUTOMATED | | | | | | | COUNT | | | | | | + + + + + + + | CLARITY OF | 2023-08-17 | [facility] | Clear | (missing) | (missing) | | URINE | 06:53 | Health | | | | | | | System - | | | | | | | [place] | | | | + + + + + + + | BILIRUBIN, | 2023-08-17 | [facility] | Negative | (missing) | (missing) | | TOTAL | 06:53 | Health | | | | | PRESENCE IN | | System - | | | | | URINE | | [place] | | | | + + + + + + + | HEMOGLOBIN | 2023-08-17 | [facility] | Negative | (missing) | (missing) | | PRESENCE IN | 06:53 | Health | | | | | URINE | | System - | | | | | | | [place] | | | | + + + + + + + | BACTERIA | 2023-08-17 | [facility] | No bacteria | /hpf | (missing) | | (#/HPF) IN | 06:53 | Health | seen | | | | URINE | | System - | | | | | | | [place] | | | | + + + + + + + | | 2023-08-17 | [facility] | Normal | mg/dl | (missing) | | UROBILINOGEN | 06:53 | Health | | | | | (MG/DL) IN | | System - | | | | | URINE BY | | [place] | | | | | TEST STRIP | | | | | | + + + + + + + | GLUCOSE IN | 2023-08-17 | [facility] | Positive | (missing) | (missing) | | URINE | 06:53 | Health | | | | | | | System - | | | | | | | [place] | | | | + + + + + + + | NITRITE | 2023-08-17 | [facility] | Positive | (missing) | (missing) | | PRESENCE IN | 06:53 | Health | | | | | URINE | | System - | | | | | | | [place] | | | | + + + + + + + | YEAST | 2023-08-17 | [facility] | Present | (missing) | (missing) | | HYPHAE IN | 06:53 | Health | | | | | URINE | | System - | | | | | | | [place] | | | | + + + + + + + | KETONES IN | 2023-08-17 | [facility] | Trace | (missing) | (missing) | | URINE | 06:53 | Health | | | | | | | System - | | | | | | | [place] | | | | + + + + + + + | MUCUS | 2023-08-17 | [facility] | Trace | (missing) | (missing) | | (#/HPF) IN | 06:53 | Health | | | | | URINE | | System - | | | | | SEDIMENT | | [place] | | | | + + + + + + + | PROTEIN IN | 2023-08-17 | [facility] | Trace | (missing) | (missing) | | URINE BY | 06:53 | Health | | | | | TEST STRIP | | System - | | | | | | | [place] | | | | + + + + + + + | COLOR OF | 2023-08-17 | [facility] | Yellow | (missing) | Urine | | URINE | 06:53 | Health | | | Culture | | | | System - | | | Added per | | | | [place] | | | protocol. | + + + + + + + + + | Result panel 33 | + + + + + +------+-------+ + | LIPASE | 2023-08-17 | [facility] | 12 | u/l | (missing) | | (U/L) IN | 06:55 | Health | | | | | SER/PLAS | | System - | | | | | | | [place] | | | | + + + +------+-------+ + + + | Result panel 34 | + + + + + +-------+---------+ + | POCT | 2023-08-17 | [facility] | 0.7 | mg/dl | (missing) | | CREATININE | 07:33 | Health | | | | | BLOOD | | System - | | | | | | | [place] | | | | + + + +-------+---------+ + + + | Result panel 35 | + + + + + + + + + | cefTRIAXone | 2023-08-17 | [facility] | <= | ug/ml | (missing) | | Islt RIA | 11:05 | Health | | | | | | | System - | | | | | | | [place] | | | | + + + + + + + | | 2023-08-17 | [facility] | <= | ug/ml | (missing) | | Ciprofloxaci | 11:05 | Health | | | | | n Islt RIA | | System - | | | | | | | [place] | | | | + + + + + + + | cefTAZidime | 2023-08-17 | [facility] | <= | ug/ml | (missing) | | Susc Islt | 11:05 | Health | | | | | | | System - | | | | | | | [place] | | | | + + + + + + + | | 2023-08-17 | [facility] | <= | ug/ml | (missing) | | levoFLOXacin | 11:05 | Health | | | | | Islt RIA | | System - | | | | | | | [place] | | | | + + + + + + + | Gentamicin | 2023-08-17 | [facility] | <= | ug/ml | (missing) | | Islt RIA | 11:05 | Health | | | | | | | System - | | | | | | | [place] | | | | + + + + + + + | Imipenem | 2023-08-17 | [facility] | <= | ug/ml | (missing) | | Islt RIA | 11:05 | Health | | | | | | | System - | | | | | | | [place] | | | | + + + + + + + | Ampicillin | 2023-08-17 | [facility] | <= | ug/ml | (missing) | | Islt RIA | 11:05 | Health | | | | | | | System - | | | | | | | [place] | | | | + + + + + + + | | 2023-08-17 | [facility] | <= | ug/ml | (missing) | | Ampicillin+S | 11:05 | Health | | | | | ulbac Islt | | System - | | | | | RIA | | [place] | | | | + + + + + + + | Ertapenem | 2023-08-17 | [facility] | <= | ug/ml | (missing) | | Islt RIA | 11:05 | Health | | | | | | | System - | | | | | | | [place] | | | | + + + + + + + | | 2023-08-17 | [facility] | <= | ug/ml | (missing) | | Nitrofuranto | 11:05 | Health | | | | | in Islt RIA | | System - | | | | | | | [place] | | | | + + + + + + + | Pip+Tazo | 2023-08-17 | [facility] | <= | ug/ml | (missing) | | Islt RIA | 11:05 | Health | | | | | | | System - | | | | | | | [place] | | | | + + + + + + + | Tobramycin | 2023-08-17 | [facility] | <= | ug/ml | (missing) | | Islt RIA | 11:05 | Health | | | | | | | System - | | | | | | | [place] | | | | + + + + + + + | TMP SMX | 2023-08-17 | [facility] | <= | ug/ml | (missing) | | Islt RIA | 11:05 | Health | | | | | | | System - | | | | | | | [place] | | | | + + + + + + + | Cefepime | 2023-08-17 | [facility] | <= | ug/ml | (missing) | | Islt RIA | 11:05 | Health | | | | | | | System - | | | | | | | [place] | | | | + + + + + + + | ceFAZolin | 2023-08-17 | [facility] | <= | ug/ml | (missing) | | Islt RIA | 11:05 | Health | | | | | | | System - | | | | | | | [place] | | | | + + + + + + + | URINE | 2023-08-17 | [facility] | 202 | (missing) | >100,000 | | CULTURE | 11:05 | Health | | | CFU/ML | | | | System - | | | Escherichia | | | | [place] | | | coli | | | | | | | Cefazolin | | | | | | | interpretati | | | | | | | on for | | | | | | | uncomplicate | | | | | | | d UTIs due | | | | | | | to E.coli, | | | | | | | Klebsiella | | | | | | | pneumoniae, | | | | | | | or Proteus | | | | | | | mirabilis | | | | | | | also applies | | | | | | | to the oral | | | | | | | | | | | | | | cephalospori | | | | | | | ns Cefaclor, | | | | | | | Cefdinir, | | | | | | | Cefpodoxime, | | | | | | | Cefprozil, | | | | | | | Cefuroxime, | | | | | | | Cephalexin, | | | | | | | and | | | | | | | Loracarbef. | + + + + + + + | URINE | 2023-08-17 | [facility] | 202 | (missing) | >100,000 | | CULTURE | 11:05 | Health | | | CFU/ML | | | | System - | | | Escherichia | | | | [place] | | | coli | | | | | | | Different | | | | | | | morphotype | | | | | | | Cefazolin | | | | | | | interpretati | | | | | | | on for | | | | | | | uncomplicate | | | | | | | d UTIs due | | | | | | | to E.coli, | | | | | | | Klebsiella | | | | | | | pneumoniae, | | | | | | | or Proteus | | | | | | | mirabilis | | | | | | | also applies | | | | | | | to the oral | | | | | | | | | | | | | | cephalospori | | | | | | | ns Cefaclor, | | | | | | | Cefdinir, | | | | | | | Cefpodoxime, | | | | | | | Cefprozil, | | | | | | | Cefuroxime, | | | | | | | Cephalexin, | | | | | | | and | | | | | | | Loracarbef. | + + + + + + + | URINE | 2023-08-17 | [facility] | 536 | (missing) | >100,000 | | CULTURE | 11:05 | Health | | | CFU/ML Gram | | | | System - | | | negative | | | | [place] | | | rods | | | | | | | Different | | | | | | | morphotype | + + + + + + + | URINE | 2023-08-17 | [facility] | 536 | (missing) | >100,000 | | CULTURE | 11:05 | Health | | | CFU/ML Gram | | | | System - | | | negative | | | | [place] | | | rods | + + + + + + + | URINE | 2023-08-17 | [facility] | Normal | (missing) | (missing) | | CULTURE | 11:05 | Health | urogenital | | | | | | System - | microbiota | | | | | | [place] | | | | + + + + + + + Social History + + + + | date | description | facility | + + + + | 2023-08-07 00:00 | Never smoked tobacco | Emergency Department at | | | | [facility] | + + + + Vital Signs + + +---------+---------+ | date | measurement | value | units | + + +---------+---------+ | 2023-08-07 00:00 | BP_diastolic | 96 | mmHg | + + +---------+---------+ | 2023-08-07 00:00 | BP_systolic | 149 | mmHg | + + +---------+---------+ | 2023-08-07 00:00 | heart_rate | 96 | /min | + + +---------+---------+ | 2023-08-07 00:00 | o2_saturation | 98 | % | + + +---------+---------+ | 2023-08-07 00:00 | respiration_rate | 20 | /min | + + +---------+---------+ | 2023-08-07 00:00 | temperature_metric | 36.61 | C | | | | | | + + +---------+---------+ | 2023-08-07 00:00 | | 97.9 | F | | | temperature_standar | | | | | d | | | + + +---------+---------+"
--- OUTSIDE RECORDS SUMMARY | ~2023-11-05 | XMS | Continuity of Care Document ---
Demographics + + + | Address | [address] | | | [place] [address] | + + + | Preferred Language | Unknown | + + + | Marital Status | unknown | + + + | Alevism Affiliation | Unknown | + + + | Race | White | + + + | Ethnic Group | Not or | + + + Author + + + | Author | [place] | + + + | Organization | [place] | + + + | Address | [address] | | | [place] [address] | + + + | Phone | | + + + Care Team Providers + + + + | Care Consumer Insights Intern Name | Role | Phone | + [...] at | | | mg/ml injection | [facility] | + + + + | 2023-08-11 00:00 | Drug or medicament | Emergency Department at | | | (substance) | [facility] | + + + + Problems + + + + | date | description | facility | + + + + | 2023-08-07 11:31 | Unspecified abdominal pain | [facility] | | | | [facility] | + + + + | 2023-08-07 11:31 | Diarrhea, unspecified | [facility] | | | | [facility] | + + + + | 2023-08-11 08:46 | Abdominal Pain | [facility] - | | | | [place] | + + + + | 2023-08-11 08:46 | Abdominal Pain | [facility] - | | | | [place] | + + + + | 2023-08-11 08:46 | Diarrhea, unspecified | [facility] - | | | | [place] | + + + + | 2023-08-17 05:48:51 | Abdominal Pain | [facility] - | | | | [place] | + + + + | 2023-08-17 05:57 | Abdominal Pain | [facility] - | | | | [place] | + + + + | 2023-08-17 05:57 | Abdominal Pain | [facility] - | | | | [place] | + + + + | 2023-08-17 05:57 | Candidiasis, unspecified | [facility] - | | | | [place] | + + + + | 2023-08-17 05:57 | Dehydration | [facility] - | | | | [place] | + + + + | 2023-08-17 05:57 | Acute cystitis without | [facility] - | | | hematuria | [place] | + + + + | 2023-08-17 05:57 | Unspecified abdominal pain | [facility] - | | | | [place] | + + + + | 2023-08-17 05:57 | Diarrhea, unspecified | [facility] - | | | | [place] | [...] Emergency Department at | | | | [facility] | + + + + | 2023-08-07 00:00 | [facility] | Emergency Department at | | | TOP | [facility] | + + + + | [...] HEMOGLOBIN | 2023-08-17 | [facility] | Negative [...] + | URINE | 2023-08-17 | [facility] | 536 | (missing) | >100,000 | [...]
[~2023-11-05 15:15] MED LIST: HYDROCHLOROTH12.5 MG PO; JARDIANCE10 MG PO; LASIX20 MG PO; LISINOPRIL20 MG PO
--- OUTSIDE RECORDS SUMMARY | 2023-11-05 15:18 | XMS ---
PreManage Notification: NHUNG SAHA Security Attorney Events No recent Security Events currently on file CRITERIA MET - 6 ED Visits in 6 Months - [facility] - 2 Visits in 30 Days - [facility] - 3 Facilities in 90 Days CARE PROVIDERS There are no care providers on record at this time. Lila has no Care Guidelines for this patient. [facility] VISIT COUNT (12 MO.) [address] 1 [facility] - [address] - [place] TOTAL 8 NOTE: Visits indicate total known visits. ED/C VISIT TRACKING (12 MO.) 11/05/2023 15:15 [facility] TYPE: Emergency COMPLAINT: - FLY SYMPTOMS 11/01/2023 11:17 [facility] TYPE: Emergency COMPLAINT: - CHEST CONGESTION, COUGH, FATIGUE 10/23/2023 09:02 [facility] TYPE: Emergency COMPLAINT: - nausea DIAGNOSES: - Diarrhea, unspecified - Hypokalemia - Abdominal Pain - nausea 09/11/2023 22:[address] [facility] [place] TYPE: Emergency DIAGNOSES: - COVID-19 - Abdominal Pain - Nausea 09/08/2023 10:18 Gus [facility] TYPE: Emergency 08/17/2023 05:[address] [facility] [place] TYPE: Emergency DIAGNOSES: - Acute cystitis without hematuria - Candidiasis, unspecified - Dehydration - Diarrhea, unspecified - Unspecified abdominal pain - Abdominal Pain 08/11/2023 08:46 [facility] [place] TYPE: Emergency DIAGNOSES: - Diarrhea, unspecified - Abdominal Pain - Flu like symptoms 08[facility]07[facility]2023 11:[facility] DIAGNOSES: [address]4400. SEVERE DIARRHEA DIZZINESS 34[address]. SHE IS DIABETIC . Diarrhea, unspecified . Unspecified abdominal pain INPATIENT VISIT TRACKING (12 MO.) 11/01/2023 11:18 [facility] [place] TYPE: Observation COMPLAINT: - COVID +, CHF 09/11/2023 22:[address] [facility] DIAGNOSES: - Acute respiratory failure with hypoxia - COVID-19 - Homelessness unspecified - Hypoxemia - Type 2 diabetes mellitus without complications [email or web address]
[2023-11-05 15:39] LABS: BASOPHILS 0.6 % (0-2); HEMATOCRIT 41.1 % (35.0-50.0); LYMPHOCYTES 11.7 % (24-44); MCH 30.1 (27-36); MCHC 33.9 g/dl (30-36); MCV 88.8 fl (81-99); MONOCYTES 10.9 % (0-12); NEUTROPHILS 75.8 % (39-80); PLATELET COUNT 150 K/uL (140-440); RBC 4.63 M/ul (4.3-5.7); RDW 14.2 (10.5-15.0)
[2023-11-05 16:02] LABS: ALBUMIN 3.5 g/dL (3.4-5.0); ALBUMIN/GLOBULIN RATIO 0.9 (1.1-2.4); ANION GAP 11.9 (7-21); BILIRUBIN, TOTAL 0.9 ng/dL (0.2-1.0); BUN/CREATININE RATIO 13.11 (6.0-28.6); CALCIUM 9.1 mg/dL (8.5-10.1); CREATININE, SERUM 0.61 mg/dL (0.55-1.02); MAGNESIUM 1.9 mg/dL (1.8-2.4); POTASSIUM 3.9 mmol/L (3.5-5.1); PROTEIN, TOTAL 7.4 g/dL (6.4-8.2)
--- NOTE | 2023-11-05 20:50 | NUR ---
pt to room 130 moved over from er strecher to bed, then needed to void - rn assist to bsc to void. 350 ml of cloudy strong urine. pivot trsf back to bed for assessment, cough noted, sob, oxygen 1lnc sats 95%. pt alert and oriented. does not remember last bm, denies any emergency contact and wants to be a full code. reports that she is living in a motel and people knows she is here. no pcp or pharmacy. hair is matted and she has redness on bilateral shins. pt turned to right side as bottom is skin intact with blanchable redness noted at time of er transfer. call light is in reach. pt is very tired.
[2023-11-05 21:34] VITALS: BP 135/90
--- NOTE | 2023-11-05 22:26 | NUR ---
SCHEDULED MEDICATION PROVIDED. IV WNL. NO OTHER NEEDS AT THIS TIME. CALL LIGHT IN REACH.
--- NOTE | 2023-11-05 22:29 | EKG ---
[facility] [address] [facility] [place] [address] Signed Sinus tachycardia Otherwise normal ECG When compared with ECG of 01-NOV-2023 14:26, TN interval has decreased QRS axis shifted left Confirmed by Pari Mehta MD () on 11/05/2023 10:28:57 PM Electronically Signed By: PARI MEHTA MD 11/05/23 2229 PATIENT NAME: YIFANNHUNG Electrocardiogram DATE OF : 55 PHYSICIAN: PARI MEHTA MD REPORT #: [id number] REPORT IS CONFIDENTIAL AND NOT TO BE RELEASED WITHOUT AUTHORIZATION
[2023-11-06] VITALS (11 sets, daily range): BP systolic 100–151; BP diastolic 74–102
[2023-11-06 05:27] LABS: BASOPHILS 0.3 % (0-2); EOSINOPHILS 0.1 % (0-6); HEMATOCRIT 40.8 % (35.0-50.0); HEMOGLOBIN 13.8 g/dL (12.0-18.0); LYMPHOCYTES 9.4 % (24-44); MCH 30.2 (27-36); MCHC 33.8 g/dl (30-36); MCV 89.1 fl (81-99); NEUTROPHILS 84.2 % (39-80); PLATELET COUNT 144 K/uL (140-440); RBC 4.58 M/ul (4.3-5.7); RDW 14.3 (10.5-15.0)
[2023-11-06 05:40] LABS: ALBUMIN 3.3 g/dL (3.4-5.0); ALBUMIN/GLOBULIN RATIO 0.87 (1.1-2.4); ANION GAP 10.7 (7-21); BUN/CREATININE RATIO 19.4 (6.0-28.6); CREATININE, SERUM 0.67 mg/dL (0.55-1.02); MAGNESIUM 1.9 mg/dL (1.8-2.4); PHOSPHORUS, INORGANIC 4.4 mg/dL (2.5-4.9); POTASSIUM 3.7 mmol/L (3.5-5.1); PROTEIN, TOTAL 7.1 g/dL (6.4-8.2)
--- NOTE | 2023-11-06 07:30 | NUR ---
REPORT RECEIVED. RESTING IN BED WITH O2 ON. HOB ELEVATED.
--- NOTE | 2023-11-06 08:20 | NUR ---
PATIENT RESTING IN BED,EYES CLOSED. BREAKFAST SET ON BEDSIDE TABLE.
--- NOTE | 2023-11-06 08:30 | NUR ---
ASSESSMENT DONE. JENNIFER SIMS. ROUTINE MEDICATIONS GIVEN. DENIES PAIN OR SHORTNESS OF BREATH . STATES SHE IS SHORT OF BREATH WITH MOVEMENT. IS [place]. TALKED WITH PATIENT ABOUT POC FOR THE DAY. THIS WILL NEED TO BE REINFORCED IS FORGETFUL.
--- NOTE | 2023-11-06 09:15 | NUR ---
VAPOTHERM APPLIED. LITERS 30, FIO2 35. CONTINUES TO SIT UP IN BED. DENIES PROBLEMS.
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
--- NOTE | 2023-11-06 11:30 | NUR ---
PATIENT UP TO BSC WITH 1PA. PATIENT UNSTEADY ON HER FEET. LINEN CHANGED, GOWN CHANGED AND HAIR WASHED. HAIR PARTIALLY COMBED OUT, TOO MATTED TO FINISH AT THIS TIME. CALL LIGHT IN EASY REACH AND PERSONAL PHONE CHARGING
--- NOTE | 2023-11-06 11:45 | NUR ---
DR. MEHTA HERE TO SEE PATIENT. PLAN IS FOR PATIENT TO BE DISCHARGED THIS AFTERNOON ON [facility].
--- NOTE | 2023-11-06 12:00 | NUR ---
ASSESSMENT DONE. VAPOTHERM REMAINS AT 30 LITERS AND 35%FIO2. SITTING UP IN BED FOR LUNCH.
--- NOTE | 2023-11-06 12:10 | NUR ---
ACCUCHECK-117. SITTING UP IN BED FOR LUNCH. PATIENT IS W/O C/O.
--- NOTE | 2023-11-06 12:22 | NUR ---
PATIENT SITTING UP FOR LUNCH. VITALS CHARTED
--- NOTE | 2023-11-06 12:30 | NUR ---
UR NOTE [facility] CH[facility] (ISC) INPATIENT 11/06/23 MET CLINICAL INDICATIONS FOR ADMISSION TO INPATIENT CARE GL DAY 1
--- NOTE | 2023-11-06 13:00 | NUR ---
RESTING IN BED. AWAITING DISCHARGE ORDERS.
--- NOTE | 2023-11-06 14:00 | NUR ---
NO CHANGES, RESTING WITH HOB ELEVATED. REMAINS ON VAPOTHERM. CALL LIGHT WITHIN REACH. PATIENT WITH REQUESTS.
--- NOTE | 2023-11-06 16:00 | NUR ---
ASSESSMENT UNCHANGED. IS VERY THANKFUL FOR THE CARES SHE IS RECEIVING. LUNGS ARE COARSE AND TIGHT. OCC COUGH. NON-PRODUCTIVE.
--- NOTE | 2023-11-06 17:50 | NUR ---
UP TO COMMODE TO EXPELL VERY LARGE SOFT FORMED STOOL WITH URINE. BACK TO BED W/O INCIDENT. SHORT OF BREATH WITH EXERTION.
--- NOTE | 2023-11-06 18:18 | NUR ---
SITTING UP IN BED TO TAKE DINNER.
--- NOTE | 2023-11-06 19:28 | NUR ---
REPORT TO NEXT SHIFT.
--- NOTE | 2023-11-06 19:36 | NUR ---
RECEIVED REPORT FROM DAY SHIFT RN. PATIENT IS RESTING IN BED. PATIENT DENIES ANY NEEDS AT THIS TIME. CALL LIGHT IN REACH.
--- NOTE | 2023-11-06 20:15 | NUR ---
RT IN ROOM AND TITRATED PATIENT TO 30/30 ON VAPOTHERM. PATIENT ASSESMENT COMPLETED. PATIENT ASSISTED WITH PHONE. PATIENT DENIES ANY SOB. PATIENTS IV FLUSHED AND SL PER ORDER. PATIENT DENIES ANY PAIN. PATIENT DENIES ANY FURTHER NEEDS. CALL LIGHT IN REACH.
--- NOTE | 2023-11-06 21:14 | NUR ---
PATIENT IS RESTING IN BED AND REMAINS ON VAPOTHERM . PATIENT DENIES ANY SOB. PATENT REPORTS COUGH, PRN MEDS GIVEN PER ORDER. PATIENT GIVEN PM MEDS PER ORDER. PATIENT DENIES ANY FURTHER NEEDS. CALL LIGHT IN REACH.
--- NOTE | 2023-11-06 23:33 | NUR ---
PATIENT ASSISTED TO THE BSC A 1PA. PATIENT ABLE TO VOID. PATIENT HAS A SLIGHT ELEVATED TEMP AT 99.0. PATIENT DENIES THE NEED FOR INTERVENTION. PATIENT INSTRUCTED ON IS AND WAS ABLE TO COMPLETED IS TO 950. PATIENTIS IN BED RESTING. PATIENT PROVIDED SNACK. PATIENT DENIES ANY FURTHER NEEDS. CALL LIGHT IN REACH.
[2023-11-07] VITALS (13 sets, daily range): BP systolic 109–147; BP diastolic 73–99
--- NOTE | 2023-11-07 01:16 | NUR ---
PATIENT ASSISTED TO THE BSC A 1PA. PATIENT ABLE TO VOID. PATIENT IS WAEK WHEN UP. PATIENT DENIES ANY SOB WHEN UP. PATIENT IS BACK IN BED RESTING. PATIENTS VITALS TAKEN AND RECORDED. TEMP WNL. PATIENT DENIES ANY FURTHER NEEDS. CALL LIGHT IN REACH. PATIENT REMAINS ON OF VAPOTHERM.
--- NOTE | 2023-11-07 02:45 | NUR ---
PATIENT IS RESTING IN BED WTIH EYES CLOSED, RR 26. CALL LIGHT IN REACH.
--- NOTE | 2023-11-07 05:10 | NUR ---
PATIENT ASSISTED TO THE BSC BY TWAN HOLDEN. PATIENT ABLE TO VOID. PATIENT IS BACK IN BED RESTING. PATIENT REMAINS ON VAPOTHERM . PATIENT DENIES ANY SOB. SNADWICH BOX PROVIDED. PATIENT DENIES ANY FURTHER NEEDS. CALL [facility] IN REACH.
[2023-11-07 05:30] LABS: BASOPHILS 0.1 % (0-2); EOSINOPHILS 0.1 % (0-6); HEMATOCRIT 41.4 % (35.0-50.0); HEMOGLOBIN 13.9 g/dL (12.0-18.0); LYMPHOCYTES 18.9 % (24-44); MCH 29.8 (27-36); MCHC 33.5 g/dl (30-36); MCV 88.9 fl (81-99); MONOCYTES 8.4 % (0-12); NEUTROPHILS 72.5 % (39-80); PLATELET COUNT 148 K/uL (140-440); RBC 4.65 M/ul (4.3-5.7); RDW 14.6 (10.5-15.0)
[2023-11-07 05:36] LABS: ALBUMIN 3.1 g/dL (3.4-5.0); ALBUMIN/GLOBULIN RATIO 0.79 (1.1-2.4); ANION GAP 12.6 (7-21); BILIRUBIN, TOTAL 0.7 ng/dL (0.2-1.0); BUN/CREATININE RATIO 29.41 (6.0-28.6); CALCIUM 8.7 mg/dL (8.5-10.1); CREATININE, SERUM 0.85 mg/dL (0.55-1.02); POTASSIUM 4.6 mmol/L (3.5-5.1)
--- NOTE | 2023-11-07 06:41 | NUR ---
ASSESMENT COMPLETED. PATIENT IS RESTING IN BED. VAPOTHERM . PATIENT DENIES ANY SOB. IS COMPLETED X2. PATIENT REPORTS "FREEXIN". TEMP WNL. WARM BLANKET AND COFFEE PROVIDED. PATIENT REQUESTS TO DO DW NEXT TIME SHE GOES TO [place]. NO FURTHER NEEDS NOTED. CALL LIGHT IN REACH.
--- NOTE | 2023-11-07 07:35 | NUR ---
PT CALL LIGHT ANSWERED, PT REQ PURSE BE BROUGHT TO HER SO SHE CAN USE HER DEBIT CARD. IN ROOM NOW W. PT. PT PURSE GIVEN TO PT. PT VITALS CHECKED AND DOCUMENTED. PT HAS NO OTHER NEEDS. PT STILL HAS PURSE W/ HER IN BED. ICE WATER REFILLED CALL LIGHT WITHIN REACH
--- NOTE | 2023-11-07 09:05 | NUR ---
dr lea here in room with pt, assessment done by rn, pt reports poor food appetite. pt reports she does not have a way to check her blood sugar at home, she reports that she does not have a pcp or take any maintence medications - or have a pharmacy but will use [facility] at [place]. tessalon evy given for cough, vapo therm on 25/ %.
--- NOTE | 2023-11-07 09:22 | NUR ---
printed education on chf given to dr lea and he provided to the pt with education at this time - no changes per dr lea.
--- NOTE | 2023-11-07 10:00 | NUR ---
In and spoke with Beatriz. She is somewhat salty today. She states she is feeling better. She is off the high flow 02 and becomes suspicious when I ask her about this. I also had asked if she was able to contact the [employer] [facility] and make arrangements for her belongings and if she was able to contact [facility]. She lets me know this is her business and she has made her own arrangements. I let her know, I was asking in case she needed assist with funds for a bus ticket. Pt is homeless wanting to leave town. She again is stating she does not want anyone to know where she will be going. I assured her this is ok. Pt denies needs and states she has contacted a friend. Per Dr. Pierce, plans is for dc in next day or so.
--- NOTE | 2023-11-07 10:14 | NUR ---
rn women services sarah in to sl iv, abx complete. call light in reach,
--- NOTE | 2023-11-07 11:15 | NUR ---
Notified by staff, pts friend is here. Let them know I did not need to speak with pts friend. Pt is capable for speaking for herself.
--- NOTE | 2023-11-07 11:46 | NUR ---
assisted pt up to bsc to void, pt friend came in and delivered her walker. bs is 258 - pt refused insulin then changed her mind. agrees to take, wants shower after lunch.
--- NOTE | 2023-11-07 12:01 | NUR ---
pt amb to bsc - void 300 ml urine, pt up to chair for lunch - room air 93% with activity and at rest 95% room air. vitals taken and bp elevated due to pt moving - will recheck.
--- NOTE | 2023-11-07 13:30 | NUR ---
PT UP TO SHOWER CHAIR, PT SHOWERING INDEPENDTLY. PT CHECKED ON AND DOING OK. LINENS CHANGED. ROOM CLEANED UP. PT IN SHOWER AT THIS TIME
--- NOTE | 2023-11-07 14:14 | NUR ---
dr lea notified that pt covid test was 09/11/23 in [facility] - supervisor ride assembly tae found info, dr had 11/01/23 + results here and pt requested a new test done today - said staff my stop using the PPE other than universal precautions. mely rt in now for her covid swab. pt on room air, resp rate is 27 95% ra.
[2023-11-07 15:19] LABS: INFLUENZA B NAA NEGATIVE (NEGATIVE); RESPIRATORY SYNCYTIAL VIR NAA POSITIVE (NEGATIVE)
--- NOTE | 2023-11-07 20:15 | NUR ---
IN TO CHECK ON PT, SHE IS TALKING ON PHONE, NO NEEDS AT THIS TIME, WILL RETURN LATER.
--- NOTE | 2023-11-07 21:00 | NUR ---
IN TO DO PT ASSESSMENT AND MEDS, BLOOD SUGAR WAS 249, 5 UNITS INSULIN GIVEN PER SS. PT ALSO REQUESTING SNACK, SHE STAES "I DIDN'T EAT ENOUGH TODAY". SANDWICH BOX GIVEN. PT HAS BEEN RESEARCHING RSV ON HER PHONE AND IS NOW VERY ANXIOUS REGARDING RSV AND HER HEATLH IN GENERAL. PT REASSURED THAT HER SX WERE IMPROVING SHE IS NOW ON ROOM AIR. ASSESSMENT IS FAIRLY BENIGN, LUNGS CLEAR, OCC COUGH NOTED AND PT DOES CO OF SOME CONGESTION BUT NO REQUESTS AT THIS TIME.
--- NOTE | 2023-11-07 22:30 | NUR ---
PT ASSISTED UP TO BATHROOM TO VOID WITH EPIC KALEIDOSCOPE ANALYST, MISSED HAT, BACK TO BED, STEADY ON FEET, NO C/O OR REQUESTS.
[2023-11-08] VITALS: BP 95/58
--- NOTE | 2023-11-08 00:15 | NUR ---
IN TO DO ASSESSMENT, NO COMPLAINTS OR REQUESTS, PT CONT ON ROOM AIR WITH SPO2 90% AND RR 26.
--- NOTE | 2023-11-08 01:25 | NUR ---
PT CONT TO REST, SPO2 90% ON ROOM AIR, RR 26, HR 80'S.
[2023-11-08 02:00] VITALS: BP 133/72
--- NOTE | 2023-11-08 02:52 | NUR ---
PT CONT TO REST, ON ROOM AIR WITH SPO2 90%, RR 26, HR 80'S.
[2023-11-08 04:00] VITALS: BP 122/75
--- NOTE | 2023-11-08 04:30 | NUR ---
PT CONT TO SLEEP, WILL DEFER ASSESSMENT TO PROMOTE SLEEP. RESP EVEN AND UNLABORED SPO2 93%.
[2023-11-08 06:00] VITALS: BP 137/87
--- NOTE | 2023-11-08 06:25 | NUR ---
PT CALLS FOR ASSISTANCE UP TO BATHROOM, STATES SHE SLEPT WELL LAST NIGHT, COFFEE GIVEN PER REQUEST. PT HAS REMAINED ON ROOM AIR THROUGH THE NIGHT WITH SATS RANGING FROM 88-97%. OCC COUGH NOTED.
--- NOTE | 2023-11-08 07:20 | NUR ---
report from Flavia rn, pt on room air through night. call light in reach - in bed resting.
[2023-11-08 08:53] VITALS: BP 128/81
--- NOTE | 2023-11-08 08:56 | NUR ---
in for am assessment - pt reports frogs outside her window - asks me if I can hear them? No frogs I told her, pt talkative, denies needs, 100% of intake except melons as she is on a website called [employer] and melons are a risk for sickness. however she loves melon but is afraid to eat it. pt reports leaving today and has a bus ticket west but will not state to where, she declines offer for assistance to set up pcp for followup and medication refills for chf dx. pt states she has all her things in her room.
--- NOTE | 2023-11-08 09:25 | NUR ---
dr lea in with pt. plan for dc today
[2023-11-08] MEDS ORDERED: BENZONATATE100 MG PO (10:07)
[2023-11-08] MEDS ORDERED: LEVOFLOXACIN750 MG PO (10:08)
[2023-11-08] MEDS ORDERED: LASIX40 MG PO (10:09)
--- NOTE | 2023-11-08 11:02 | NUR ---
pt reports her frind brought her back pack up yesterday and she had a rainbow necklase in it. she can not find it at this this time. she is sure she had it although she admits that she never saw it here at the hospital that her friend brought it in. pt is very flighty and anxious over this item and its loss. abx now fusing as pt agrees to it and tessalon evy given for cough.
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
--- NOTE | 2023-11-08 11:46 | NUR ---
rn and machinist supervisor geronimo, in with pt to help pt look for her reported rainbow necklace that her friend brought in. pt declines bs check or insulin at this time. lunch to pt. pt is dc - signed printed dc papers and hard copy rx given to pt, she wants to have it in her possession not sent to any pharmacy. pt declines to call her friend who packed her bags and brought in her belongings as asked by machinist supervisor to see where she placed the items. linen is gone through by these 2 staff with pt and all personal items - no necklace found - pt admits that she has not seen it here in this hospital - but that her friend jenny brought in all her belongings. pt is very anxious.
--- NOTE | 2023-11-08 12:32 | NUR ---
PT IV DC INTACT - HOTEL RESERVATION CONFIRMED, AND EARLY CHECK IN CONFIRMED, LASER CUTTER CONFIRMED TRANSPORT BY HOSPITAL STAFF - PLAN FOR 1300, PT GETTING DRESSED WITH STAFF, ASSURED WE WOULD GO SLOWLY AND TAKE CARE OF PACKING HER PERSONAL BELONGINGS BEING SURE TO LOOK AND TAKE INVENTROY OF HER ITEMS - STAFF ARE TRYING TO BE VERY AWARE OF HER ANXIETY AND CONCERN FOR HER BELONGINGS ALSO ASSISTING IN HER TO DRESS AND TRANSFER OUT. WARM BLANKETS OFFERED.
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
== END 2023-11-08 13:10 | disposition home or self-care (01) | DRG 871 ==
LOC: ED 15:15 → CCU 15:16
PROVIDERS: Emergency Medicine; ADMIT Family Medicine; ATTEND Family Medicine
PROC: 3E03329 Introduction of Other Anti-infective into Peripheral Vein, Percutaneous Approach (ICD-10-PCS; principal; 2023-11-06)
PROC: 3E0333Z Introduction of Anti-inflammatory into Peripheral Vein, Percutaneous Approach (ICD-10-PCS; 2023-11-06)
DX: A41.9 Sepsis, unspecified organism (principal); I50.23 Acute on chronic systolic (congestive) heart failure; J18.9 Pneumonia, unspecified organism; J96.01 Acute respiratory failure with hypoxia; U07.1 COVID-19; B97.4 Respiratory syncytial virus as the cause of diseases classified elsewhere; H91.90 Unspecified hearing loss, unspecified ear; Z90.89 Acquired absence of other organs; Z86.73 Personal history of transient ischemic attack (TIA), and cerebral infarction without residual deficits; Z98.890 Other specified postprocedural states; Z88.5 Allergy status to narcotic agent
CPT/HCPCS: 36415; 71045; 71260; 80053; 83605; 83735; 83880; 84100; 84484; 85025; 87040; 87077; 87186; 87502; 93005; 93010; 94640; 94799; 96372; 96375; 96376; G0378; J1100; J1650; J1815; J1940; J1956; Q9967; U0002